=== PATIENT | female | born 1940 | race Caucasian/White ===

== ENCOUNTER 2022-12-25 14:49 | Emergency (ER) | payer OTHER, MEDICARE | END 2022-12-25 15:17 | disposition home or self-care (01) | LOC: DL.ED 14:49 | DX: Z04.1 Encounter for examination and observation following transport accident (principal); I48.91 Unspecified atrial fibrillation; Z79.01 Long term (current) use of anticoagulants; V49.40XA Driver injured in collision with unspecified motor vehicles in traffic accident, initial encounter; Y92.410 Unspecified street and highway as the place of occurrence of the external cause | CPT/HCPCS: 99282; 99284 ==